=== PATIENT | female | born 1965 | race Caucasian/White ===

== ENCOUNTER 2022-11-09 09:11 | Outpatient (CLI) | payer BC ==
[~2022-11-09 09:11] MED LIST: Iopamidol 370 76% 100 ML VIAL ONE
== END 2022-11-09 09:12 | disposition home or self-care (01) ==
LOC: BURCT 09:11
PROVIDERS: ATTEND Family Medicine
DX: R10.11 Right upper quadrant pain (principal)
CPT/HCPCS: 74177; Q9967